=== PATIENT | female | born 1980 | race African-American/Black ===

== ENCOUNTER 2016-11-24 10:01 | Emergency (ER) | payer OTHER ==
[~2016-11-24] VITALS: Ht 180.3 cm; Wt 127.3 kg
[2016-11-24] MEDS ORDERED: IBUPROFEN 600 MG TABLET PO ONE (10:45)
[2016-11-24 11:56] VITALS: BP 122/76
== END 2016-11-24 11:57 | disposition home or self-care (01) ==
LOC: EMS 10:02
DX: S46.911A Strain of unspecified muscle, fascia and tendon at shoulder and upper arm level, right arm, initial encounter (principal); S09.90XA Unspecified injury of head, initial encounter; M54.5 Low back pain; M54.2 Cervicalgia; W19.XXXA Unspecified fall, initial encounter; Y93.89 Activity, other specified; Y92.89 Other specified places as the place of occurrence of the external cause; Y99.8 Other external cause status
CPT/HCPCS: 73030; 99284; A4566

== ENCOUNTER 2025-07-02 07:46 | Day surgery (SDC) | payer OTHER ==
[~2025-07-02] VITALS: Ht 180.3 cm; Wt 97.7 kg
[~2025-07-02 07:46] MED LIST: RINGERS SOLUTION,LACTATED 1,000 ML IV ONE
[2025-07-02] MEDS: CHLORHEXIDINE GLUCONATE 2% TOWELETTE [2'S/6'S] TP ONE (08:42)
[2025-07-02] MEDS: ETHYL ALCOHOL 62% ANTISEPTIC NASAL SANITIZER 0.6 ML AMPUL NASAL ONE (08:42)
[2025-07-02] MEDS: RINGERS SOLUTION,LACTATED 1,000 ML IV ONE (08:42)
[2025-07-02] MEDS ORDERED: MEPERIDINE-PF 25 MG/ML VIAL IVP PRN (09:15)
[2025-07-02] MEDS ORDERED: FentaNYL CITRATE PF 100 MCG/2 ML VIAL IVP PRN (09:15)
[2025-07-02] MEDS ORDERED: SCOPOLAMINE HYDROBROMIDE 1 MG/72 HOUR PATCH TD ONE (09:15)
[2025-07-02] MEDS ORDERED: BUPIVACAINE HCL/PF 0.25% 30 ML VIAL ONE (09:34)
[2025-07-02] MEDS ORDERED: BUPIVACAINE HCL/PF 0.5% 30 ML VIAL ONE (09:56)
[2025-07-02] MEDS: BUPIVACAINE LIPOSOME/PF 1.3%-13.3MG/ML SUSP 20 ML VIAL INJ ONE (10:23)
[2025-07-02] MEDS ORDERED: OxyCODONE HCL/ACETAMINOPHEN 5-325 MG TABLET ONE ×2 (11:20→11:39)
[2025-07-02] MEDS: OxyCODONE HCL/ACETAMINOPHEN 5-325 MG TABLET PO ONE ×2 (11:41→11:42)
[2025-07-02] MEDS ORDERED: OXYGEN THERAPY IH SCH (20:00)
== END 2025-07-02 12:25 | disposition home or self-care (01) ==
LOC: SDS 07:46
PROVIDERS: ATTEND Specialist
DX: M23.261 Derangement of other lateral meniscus due to old tear or injury, right knee (principal); M94.261 Chondromalacia, right knee; Z91.040 Latex allergy status; Z90.49 Acquired absence of other specified parts of digestive tract; Z90.710 Acquired absence of both cervix and uterus; Z98.890 Other specified postprocedural states; Z20.822 Contact with and (suspected) exposure to COVID-19
CPT/HCPCS: 29881; J0666; J3490; J1171; J7120